=== PATIENT | male | born 1985 | race Two or more races ===

== ENCOUNTER 2018-03-17 12:32 | Emergency (ER) | payer MEDICAID ==
[~2018-03-17] VITALS: Ht 185.4 cm; Wt 90.7 kg
[2018-03-17 12:44] VITALS: BP 124/75
== END 2018-03-17 13:57 | disposition home or self-care (01) ==
LOC: ER 12:32
DX: S61.231A Puncture wound without foreign body of left index finger without damage to nail, initial encounter (principal); L08.9 Local infection of the skin and subcutaneous tissue, unspecified; W45.8XXA Other foreign body or object entering through skin, initial encounter; Y93.89 Activity, other specified; Y92.89 Other specified places as the place of occurrence of the external cause; Y99.8 Other external cause status